=== PATIENT | male | born 1955 | race Caucasian/White ===

== ENCOUNTER 2016-11-27 14:18 | Outpatient (CLI) | payer BC ==
[2016-11-27] MEDS ORDERED: Gadobenate Dimeglumine 529 MG/1 ML (20ML VIAL) ONE (16:37)
--- NOTE | 2016-11-27 17:45 | RAD ---
FIVE VIEWS OF THE CERVICAL SPINE: 11/27/16 HISTORY: Three month check up on synovial cyst. Neck pain. Cervical spine cyst. COMPARISON: 08/21/16 FINDINGS: C1 to the cervicothoracic junction is seen on the lateral view. Multilevel degenerative changes are seen greatest at the C5-6 and C6-7 levels where there is narrowing of the intervertebral disc spaces and osteophyte formation. There is slight anterolisthesis of C4 on C5 seen on neural and flexion po sitioning which corrects with extension. No fracture is seen and no additional level of subluxation is identified. The prevertebral soft tissues are within normal limits. Radiopaque density overlying the subcutaneous soft tissues on the prior exam is not seen on this vera dy and may have been related to overlying artifact on the prior exam. IMPRESSION: 1. Anterolisthesis of C4 on C5, and the anterolisthesis corrects on extension. 2. Multilevel degenerative changes, greatest at the C5-6 and C6-7 levels. POS: [facility]
--- NOTE | 2016-11-27 20:58 | MRI ---
MRI CERVICAL SPINE WITH AND WITHOUT CONTRAST: Technique: Multiplanar, multisequential imaging of the cervical spine. Post contrast images obtained after administration of 14 cc MultiHance IV. History: Follow up cervical spine cyst. Neck mass. Comparison: MRI cervical spine 08-21-16. FINDINGS: Degenerative changes of the cervical spine again noted. There is loss of disc height at C5-6 and C6- 7. Posterior disc bulge and spondylosis at C5-6 and C6-7 again noted. Impingement on the anterior co rd at C5-6. Effacement of the anterior subarachnoid space at C4-5 and C6-7 again noted. These findin gs are stable. There is a linear vascular type signal abnormality seen in the posterior paraspinal tissues on the r ight at C4 and C5. This signal abnormality exhibits high T2 and low T1 signal with no significant en hancement. It extends into the right foramina at C4-5 and into the epidural space posteriorly on the right at this level abutting the posterior cord on the right. This produces slight flattening of th e posterior cord. The component seen in the posterior spinal canal in the epidural space is slightly larger today measuring at 5.4 mm where it previously measured at 4.3 mm. This does impinge on a mil dly flattened posterior cord on the right. The impingement of the cord does not appear significantly changed. 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 IMPRESSION: 1. 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 There may be slight increase in size in the posterior epidural component when compared to the 08-21-16 exam . AP dimension today measured at 5.4 mm where its previous AP dimension recorded at 4.3 mm. 2. Spondolytic changes in the spine again noted as described above. These changes are stable. POS: [facility]
== END 2016-11-27 14:19 | disposition home or self-care (01) ==
LOC: TBSIIMAG 14:18
PROVIDERS: ATTEND Surgery
DX: R22.1 Localized swelling, mass and lump, neck (principal); M85.68 Other cyst of bone, other site; M47.892 Other spondylosis, cervical region; M43.12 Spondylolisthesis, cervical region
CPT/HCPCS: 72050; 72156; A9579

== ENCOUNTER 2017-06-04 14:12 | Outpatient (CLI) | payer BC ==
[2017-06-04] MEDS ORDERED: Gadobenate Dimeglumine 529 MG/1 ML (20ML VIAL) ONE (15:43)
--- NOTE | 2017-06-04 16:02 | RAD ---
CERVICAL SPINE: Date; 06/04/17 HISTORY: R22.1, cervical spine cyst. M54.2, neck pain. COMPARISON: Cervical spine radiographs same day. FINDINGS: Moderately advanced degenerative disc space height loss at C5-6 and C6-7. There is anterolisthesis in the neutral position of C4 over C5 of approximately 3.0 mm, with mild increase with flexion from 2.0 mm to 3.0 mm, with extension going back to 2.0 mm. Chronic superior end plate height loss at C7. IMPRESSION: Moderate degenerative changes, as well as C4 over C5 anterolisthesis with mild translation with flexi on. POS: [facility]
--- NOTE | 2017-06-04 17:02 | MRI ---
PRE AND POST CONTRAST ENHANCED MRI CERVICAL SPINE: 06/04/2017 COMPARISON: 11/27/2016 and 05/31/2016 FINDINGS: Multiplanar, multisequence pre and post contrast enhanced MRI of the cervical spine demonstrate, agai n, a right C4 and C5 area of T2 signal abnormality with a peripheral rim of enhancement, compatible w ith a venolymphatic malformation, unchanged since previous numerous MRIs. There is an area of the lesion that extends into the right C4 epidural space, compressing the thecal sac, along the right posterior aspect. No evidence of signal abnormality is seen within the spinal c ord. C1-C2: Unremarkable. C2-C3: Unremarkable. C3-C4: There is some moderate left C3-C4 neural foraminal narrowing due to uncovertebral and facet h ypertrophic changes. The right neural foramen is patent. The central canal is patent. C4-C5: Disk desiccation is seen. There is a broad-based disk osteophyte complex centrally, compress ing the thecal sac, resulting in a moderate degree of central and moderate neural foraminal narrowing . C5-C6: Disk desiccation and degeneration is seen. There is a broad-based disk osteophyte complex ce ntrally, resulting in mild to moderate central stenosis. Moderate bilateral neural foraminal narrowi ng is seen, due to uncovertebral osteophyte hypertrophy. C6-C7: Again, disk degenerative change is seen. The central canal is patent. Mild neural foraminal narrowing is seen. C7-T1: Unremarkable. IMPRESSION: Right intrathecal and paraspinal C4-C5 area of well circumscribed lobular density, most compatible wi th lymphovenous malformation, unchanged on numerous previous comparison MRIs. One component of this does extend into the right C4 epidural space. Some modic type I change is seen in the inferior endpl ate of C5 and the superior endplate of C6. POS: [facility]
== END 2017-06-04 14:13 | disposition home or self-care (01) ==
LOC: TBSIIMAG 14:12
PROVIDERS: ATTEND Surgery
DX: M54.2 Cervicalgia (principal); R22.1 Localized swelling, mass and lump, neck; M47.892 Other spondylosis, cervical region; M43.12 Spondylolisthesis, cervical region
CPT/HCPCS: 72050; 72156; A9579

== ENCOUNTER 2017-06-13 14:03 | Outpatient (CLI) | payer BC ==
[~2017-06-13 14:03] MED LIST: Iopamidol 370 76% 100 ML VIAL ONE
--- NOTE | 2017-06-13 16:07 | CT ---
CT ANGIOGRAM OF THE NECK: HISTORY: Posterior right neck lymphogenous endolymphatic malformation. Presurgical examination to evaluate th e vertebral arteries. COMPARISON: None. CORRELATION: MRI 06/04/17. TECHNIQUE: CT angiogram of the neck is performed in the axial plane. Three-dimensional reformatted images are s ubmitted for interpretation. FINDINGS: Visualized brain parenchyma is unremarkable. Bilateral ocular lenses are appropriately located. Bot h globes are intact. Retrobulbar fat is preserved. Symmetric attenuation of the optic nerve and ocu lar rectus muscles. Adequate aeration of the sinuses and mastoid air cells. Aerodigestive tract is patent. No mucosal abnormality. The midline fatty raphe of the tongue is pre served. Epiglottis has a normal caliber. Preepiglottic fat is preserved. No prevertebral soft tiss ue swelling. Cervical spine vertebral height is maintained. No fracture. Varying degrees of central canal stenos is and foraminal narrowing on the basis of degenerative change. Evaluation is limited by technique. Upper mediastinum and lung apices are unremarkable. Symmetric attenuation of the sternocleidomastoid muscles, parotid and submandibular glands. Unremark able thyroid gland. No evidence of lymphadenopathy by size criteria. CT ANGIOGRAM: The aortic arch is patent. Both carotid arteries are patent throughout their course of the neck. No significant stenosis. Bilateral subclavian arteries are patent. Bilateral cervicovertebral bodies are patent throughout their course in the neck. The left vertebral artery is slightly larger than the contralateral size. Both vertebral artery origins are also gross ly unremarkable. A small amount of calcified plaque at the origin of the right vertebral artery is n oted. The previously identified venolymphatic malformation at the C3 and C4 levels does demonstrate asymmet dony soft tissue prominence. There is no evidence of significant enhancement. IMPRESSION: 1. Patent bilateral vertebral arteries. 2. Asymmetric soft tissue prominence corresponding to the venolymphatic malformation identified on p revious MRI. No evidence of avid enhancement. POS: [facility]
== END 2017-06-13 14:04 | disposition home or self-care (01) ==
LOC: TBSIIMAG 14:03
PROVIDERS: ATTEND Surgery
DX: M54.12 Radiculopathy, cervical region (principal); D48.0 Neoplasm of uncertain behavior of bone and articular cartilage
CPT/HCPCS: 70498

== ENCOUNTER 2017-07-10 08:34 | Outpatient (CLI) | payer BC ==
[2017-07-10 09:26] LABS: Hemoglobin 14.1 g/dL (14.0-18.0); Mean Corpuscular HGB CONC 36.3 g/dL (32.0-36.0); Mean Corpuscular Hemoglobin 35.1 pg (27.0-31.0); Mean Corpuscular Volume 96.8 fl (80.0-94.0); Platelet Count 299 thou/uL (130-400); RBC Distribution Width 11.9 % (11.5-14.5); Red Blood Cell (RBC) Count 4.02 mill/uL (4.70-6.10); White Blood Cell (WBC) Count 5.8 thou/uL (4.8-10.8)
[2017-07-10 09:34] LABS: PTT 28.6 SEC (22.9-36.1); Prothrombin Time 12.9 SEC (12.0-14.7)
[2017-07-10 09:45] LABS: Anion Gap 14 mmol/L (10-20); BUN (Urea Nitrogen) 17 mg/dL (8.4-25.7); Calc. Creatinine Clearance 0 mL/min (70-130); Calcium 9.9 mg/dL (7.8-10.44); Carbon Dioxide 27 mmol/L (22-29); Chloride 103 mmol/L (98-107); Estimated GFR-MDRD 73; Glucose 91 mg/dL (70-105); Potassium 4.1 mmol/L (3.5-5.1); Sodium 140 mmol/L (136-145)
--- NOTE | 2017-07-10 23:53 | EKG ---
Test Reason : Blood Pressure : / mmHG Vent. Rate : 085 BPM Atrial Rate : 085 BPM P-R Int : 182 ms QRS Dur : 082 ms QT Int : 368 ms P-R-T Axes : 052 -10 022 degrees QTc Int : 437 ms Normal sinus rhythm Normal ECG No previous ECGs available Confirmed by Rashawn QIU ([id number]) on 07/10/2017 11:53:21 PM Referred By: JONATHAN Confirmed By:Rashawn QIU
== END 2017-07-10 08:35 | disposition home or self-care (01) ==
LOC: LABBT 08:34
PROVIDERS: ATTEND Surgery
DX: Z01.818 Encounter for other preprocedural examination (principal); M48.02 Spinal stenosis, cervical region; G95.9 Disease of spinal cord, unspecified
CPT/HCPCS: 80048; 85027; 85610; 85730; 93005; 93010

== ENCOUNTER 2017-07-17 05:54 | Day surgery (SDC) | payer BC ==
[2017-07-17] MEDS ORDERED: Sodium Chloride 0.9% 10 ML ONE ×2 (06:32→06:33)
[2017-07-17] MEDS ORDERED: Bacitracin Zinc Ointment 30 gm TUBE ONE (06:33)
[2017-07-17] MEDS ORDERED: Thrombin 5000 UNITS/5 ML VIAL ONE ×3 (06:33→15:45)
[2017-07-17] MEDS ORDERED: Midazolam HCl 2 mg/2 ml Vial ONE (06:59)
[2017-07-17] MEDS ORDERED: CEFAZOLIN/Water 2 GM/20 ML SYRINGE ONE (06:59)
[2017-07-17] MEDS ORDERED: Albumin 5% 500 ML ONE (07:12)
[2017-07-17] MEDS ORDERED: Promethazine HCl 25 MG/ML VIAL ONE (07:12)
[2017-07-17] MEDS ORDERED: Phenylephrine HCL 10 MG/ML VIAL ONE (07:12)
[2017-07-17] MEDS ORDERED: Fentanyl 100 MCG/2 ML VIAL ONE ×4 (07:29→15:10)
[2017-07-17] MEDS ORDERED: Promethazine HCl 25 MG/ML VIAL IM PRN ×2 (11:02→13:45)
[2017-07-17] MEDS ORDERED: Ondansetron HCl/PF 4 MG/2 ML Vial IVP PRN (11:02)
[2017-07-17] MEDS ORDERED: Morphine Sulfate 2 MG/ML SYRINGE SLOW IVP PRN (11:02)
[2017-07-17] MEDS ORDERED: Promethazine HCl 25 MG/ML VIAL SLOW IVP PRN (11:02)
[2017-07-17] MEDS ORDERED: Meperidine HCl/PF 25 MG/ML VIAL SLOW IVP PRN (11:02)
[2017-07-17] MEDS ORDERED: HYDROmorphone 2 MG/ML VIAL SLOW IVP PRN (11:02)
[2017-07-17] MEDS ORDERED: PHENYLEPHRINE-NS 100 MCG/ML 10 ML SYRINGE ONE ×2 (11:56→15:45)
[2017-07-17] MEDS ORDERED: Vecuronium 10 MG VIAL ONE ×2 (12:07→15:45)
[2017-07-17] MEDS ORDERED: HYDROmorphone 0.5 MG/0.5 ML SYRINGE ONE (13:12)
[2017-07-17] MEDS ORDERED: Fleet Enema 133 ML BOT PR PRN (13:45)
[2017-07-17] MEDS ORDERED: Mag-Al 1200 mg/1200 mg/30 ML UDCUP PO PRN (13:45)
[2017-07-17] MEDS ORDERED: Acetaminophen 325 MG TAB PO PRN (13:45)
[2017-07-17] MEDS ORDERED: Bisacodyl 10 MG SUPP PR PRN (13:45)
[2017-07-17] MEDS ORDERED: traMADol HCl 50 MG TAB PO PRN (13:45)
[2017-07-17] MEDS ORDERED: Milk Of Magnesia 30 ML UDCUP PO PRN (13:45)
[2017-07-17] MEDS ORDERED: PROVENTIL INHALER 6.7 G (200 INHALATIONS) INH PRN (13:48)
--- NOTE | 2017-07-17 14:10 | OP ---
DATE OF PROCEDURE: 07/17/2017 OR: OR #12. WOUND TYPE: Type 1 wound. SURGEON: Ugo Miller M.D. PRINT PRODUCTION MANAGER: Jp Gaitan PA-C. 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 PROCEDURE: 1. Anterior C4-C5, C5-C6 diskectomy for decompression of the spinal cord and preparation of endplate s for arthrodesis C4-C5, C5-C6 anteriorly. 2. Placement of interbody spacer, C4-C5, C5-C6 packed with local bone autograft and allograft obtain ed from same incision, C4-C5, C5-C6. 3. Anterior cervical plate and screw fixation, C4, C5, C6. 4. Use of operative microscope for microdissection. 5. Extradural mass resection with extension into the soft tissues with a resection of that component as well and into the C5 neural foramen. 6. Lateral mass screw cindy fixation, left-sided C4, C5, C6. 7. Posterior lateral fusion, left side, C4, C5, C6 with allograft. PROCEDURE: After informed consent was obtained from the patient, the patient was brought to OR 12. Proper patient pause and identification was carried out. He was placed under excellent general endot anjelica anesthesia and positioned supine on the OR table. Right anterior oblique wade was drawn out on his right neck that allow for approach to C4, C5, C6 segments. This region was sterilely cleansed , prepared, and draped. Proper patient pause and identification was carried out. The wound was then opened with a combination of sharp, monopolar and blunt dissection proceeded lateral to the larynx a nd pharynx and medial to the right carotid sheath. We identified the prevertebral layer of deep cerv ical fascia and C4, C5, C6 segments. Localization film confirmed our area of interest. We then perf ormed distraction at C4-C5 and microscope was brought in the field. Diskectomy was performed with de compression of spinal cord and C5 nerve roots. We then turned our attention to placement of interbod y spacer following preparation of the endplate. This interbody spacer was of appropriate dimension a nd this was placed. We then turned our attention to distraction at C5-C6 and this occurred as well. Diskectomy at C5-C6 was performed and the endplates prepared and an appropriate dimension interbody spacer packed with local bone autograft obtained from same incision. Allograft was placed at C5-C6 f ollowing preparation of the endplates for arthrodesis. Copious irrigation occurred throughout as did maximizing hemostasis. The microscope was then removed and anterior cervical plate and screw fixati on, C4, C5, C6, then occurred. The plate and screw fixation at C4, C5, C6 occurred with final tighte kassi. Copious irrigation occurred. Hemostasis was maximized. The wound was then closed in anatomic layers over a drain. The patient was then placed in the prone position. Following the securing of the Rodriguez troy to his skull and a small amount of hair was clipped in the lower portion of the hairline posteriorly. W e then identified from C2 down to C6 an incision that we would drawn out to allow for subperiosteal e xposure across that region. Following proper patient pause and identification, this was performed al thierry with sterile cleansing, preparation and draping and the C2 to C6 segments were exposed. We ident ified cartilaginous appearing fleshy mass in the dorsal elements of C5. This was resected and sent f or pathology. Preliminary pathology consistent with cartilage. I then identified the lateral masses of C4, C5, C6 on the left side and lateral mass screw cindy fixation occurred with final tightening. We then turned our attention to the remaining portions of the tumor resection and a large hemilaminot alexa at C4-C5 was performed and the extradural mass identified. It was quite adherent to the dura and we peeled it off the dura carefully. We then followed it into the C5 foramen with excellent decompr ession of the C5 root and identification of the C5 root. I followed it throughout the foramen and re sected the facet complex and identified it into the soft tissues. It was quite nodular and firm and this was resected. I was very pleased with our resection and our decompression. Copious irrigation occurred throughout. Hemostasis was maximized. Decortication left side the lateral masses then occu rred at C4, C5, C6, and our allograft was laid out in this region for arthrodesis. Copious irrigatio n and hemostasis were maximized throughout. The wound was closed in anatomic layers following the sp rinkling of vancomycin powder. The patient then emerged from anesthesia.
[2017-07-17] MEDS ORDERED: Dexamethasone 20 MG/5 ML VIAL ONE (15:45)
[2017-07-17] MEDS ORDERED: Glycopyrrolate 0.2 MG/ML 5 ML SYRINGE ONE (15:45)
[2017-07-17] MEDS ORDERED: Ondansetron HCl/PF 4 MG/2 ML Vial ONE (15:45)
[2017-07-17] MEDS ORDERED: CEFAZOLIN 1 GM VIAL ONE (15:45)
[2017-07-17] MEDS ORDERED: Esmolol 100 MG/10 ML VIAL ONE (15:45)
[2017-07-17] MEDS ORDERED: Lidocaine 2% PF 100 mg/5 ml Syringe ONE (15:45)
[2017-07-17] MEDS ORDERED: Metoclopramide HCl 10 MG/2 ML VIAL ONE (15:45)
[2017-07-17] MEDS ORDERED: PROPOFOL 200 MG/20 ML VIAL ONE (15:45)
[2017-07-17] MEDS ORDERED: Lidocaine 1% PF 5 ML VIAL ONE (15:45)
[2017-07-17] MEDS: Sodium Chloride 0.9% 1,000 ML IV SCH (16:05)
[2017-07-17] MEDS: Acetaminophen/Codeine 30-300mg Tablet PO PRN (16:14)
[2017-07-17 19:24] VITALS: BMI 26.6
[2017-07-17] MEDS: CEFAZOLIN/Water 2 GM/20 ML SYRINGE SLOW IVP SCH (21:09)
[2017-07-17] MEDS: tiZANidine HCl 4 MG TAB PO PRN (21:09)
[2017-07-18] MEDS: HYDROcodone/Acetaminophen 7.5/325 mg Tablet PO PRN ×2 (06:45→21:25)
[2017-07-18] MEDS: tiZANidine HCl 4 MG TAB PO PRN ×2 (06:45→21:26)
[2017-07-18] MEDS: CEFAZOLIN/Water 2 GM/20 ML SYRINGE SLOW IVP SCH ×3 (06:46→21:03)
[2017-07-18] MEDS: Cepastat Lozenges 1 LOZ PO PRN ×2 (07:47→21:02)
[2017-07-18] MEDS: Sodium Chloride 0.9% 1,000 ML IV SCH ×2 (08:30→21:04)
--- NOTE | 2017-07-18 09:31 | PRG ---
DATE OF SERVICE: 07/18/2017 Mr. Cleaning is postoperative day #1, having undergone C4-C6 ACDF and posterior cervical fusion C4, 5 and 6 with right-sided facetectomy at C4-5 and excision of posterior cervical mass. The patient is d oing well postoperatively, though does have expected postoperative pain including bilateral trapezius pain. He has good strength in the bilateral upper extremities. He is tolerating pills, but does johns ve some swallowing discomfort and has been using Cepacol lozenges. He has been wearing his collar as directed. We will keep him on a clear liquid diet. More than likely he will meet criteria for disc harge tomorrow, but will stay one more overnight for continued postoperative pain control. Please ca ll with any questions or changes in patient's neurologic status.
[2017-07-18] MEDS: Acetaminophen/Codeine 30-300mg Tablet PO PRN (18:19)
[2017-07-19] MEDS: CEFAZOLIN/Water 2 GM/20 ML SYRINGE SLOW IVP SCH ×2 (06:02→14:29)
[2017-07-19] MEDS: tiZANidine HCl 4 MG TAB PO PRN (06:15)
[2017-07-19] MEDS ORDERED: Dexamethasone 4 mg/ml Vial SLOW IVP SCH (08:00)
[2017-07-19] MEDS ORDERED: Famotidine/PF 20 mg/2ml Vial SLOW IVP SCH (09:00)
--- NOTE | 2017-07-19 10:32 | PRG ---
DATE OF SERVICE: 07/19/2017 Mr. Cleaning continues to do well postoperative from an anterior posterior stabilization and resection of a large extradural lesion. The pathology appears to be consistent with a cartilaginous lesion th at is being sent to [facility] for further assessment with possibilities of enchondroma or low grade chondrosarcoma. I discussed all this with Mr. Cleaning. Neurologically he remains intact. His drai n output is minimal. He did state when he was attempting to sleep he had some air hunger. He is on room air and has no stridor and we will continue to watch him closely this morning. He may be able t o get out of the hospital later today or perhaps tomorrow.
[2017-07-19] MEDS: Dexamethasone 4 mg/ml Vial SLOW IVP SCH ×2 (12:41→18:21)
[2017-07-19] MEDS: Sodium Chloride 0.9% 1,000 ML IV SCH (14:38)
[2017-07-19 15:14] VITALS: BP 121/76; TEMP 98.4
[2017-07-20] MEDS ORDERED: Dexamethasone 4 mg/ml Vial SLOW IVP SCH (12:00)
[2017-07-21] MEDS ORDERED: Dexamethasone 4 mg/ml Vial SLOW IVP SCH (12:00)
[2017-07-22] MEDS ORDERED: Dexamethasone 4 mg/ml Vial SLOW IVP SCH (12:00)
== END 2017-07-19 18:38 | disposition home or self-care (01) ==
LOC: SDC 05:54 → EDSTATUS 08:30 → SURG A 13:44 → SDC 07-19 18:38
PROVIDERS: ATTEND Surgery
PROC: 0RG2070 Fusion of 2 or more Cervical Vertebral Joints with Autologous Tissue Substitute, Anterior Approach, Anterior Column, Open Approach (ICD-10-PCS; principal; 2017-07-17)
PROC: 0RG20A0 Fusion of 2 or more Cervical Vertebral Joints with Interbody Fusion Device, Anterior Approach, Anterior Column, Open Approach (ICD-10-PCS; principal; 2017-07-17)
PROC: 0RB30ZZ Excision of Cervical Vertebral Disc, Open Approach (ICD-10-PCS; principal; 2017-07-17)
PROC: 0PB30ZX Excision of Cervical Vertebra, Open Approach, Diagnostic (ICD-10-PCS; principal; 2017-07-17)
DX: M43.12 Spondylolisthesis, cervical region (principal); M50.822 Other cervical disc disorders at C5-C6 level; M48.8X2 Other specified spondylopathies, cervical region; Z88.2 Allergy status to sulfonamides
CPT/HCPCS: 76001; 88304; 88307; 88331; 88360; 96374; A4216; C1713; C1776; J0131; J0690; J1100; J1170; J2001; J2250; J2370; J2405; J2550; J2704; J2765; J3010; J3370; J3490; P9045

== ENCOUNTER 2017-09-03 09:25 | Outpatient (CLI) | payer BC ==
--- NOTE | 2017-09-03 11:39 | RAD ---
CERVICAL SPINE THREE VIEWS: History: Post op follow up. FINDINGS: Anterior plate and screws are seen transfixing C4, C5, and C6 with interbody implants. Posterior pedi haider screws are present on the left at these levels. Vertebral bodies maintain height and alignment. M ild loss of disc space at C6-7. Degenerative changes are also present at C6-7 with mild wedging of C6 and degenerative osteophytes. IMPRESSION: Degenerative and post-operative changes of the cervical spine noted as described. POS: [facility]
== END 2017-09-03 09:26 | disposition home or self-care (01) ==
LOC: RAD 09:25 → TBSIIMAG 09:26
PROVIDERS: ATTEND Surgery
DX: M50.30 Other cervical disc degeneration, unspecified cervical region (principal); M47.892 Other spondylosis, cervical region; Z98.890 Other specified postprocedural states
CPT/HCPCS: 72040

== ENCOUNTER 2019-03-19 12:51 | Outpatient (CLI) | payer BC ==
--- NOTE | 2019-03-19 14:17 | RAD ---
CERVICAL SPINE 3 VIEWS: Date: 03/19/2019 HISTORY: Cervical spinal stenosis, neck pain. COMPARISON: 09/03/2017. FINDINGS: Anterior and posterior fusion changes noted at C4, C5, and C6, with intradiscal prosthesis. No signif icant malalignment. The odontoid and C1 are mostly obscured on the AP open-mouth view. Disc osteophyt osis at C6-C7. IMPRESSION: Stable postoperative changes of the cervical spine from prior study. POS: [facility]
== END 2019-03-19 12:52 | disposition home or self-care (01) ==
LOC: TBSIIMAG 12:51
PROVIDERS: ATTEND Surgery
DX: M48.02 Spinal stenosis, cervical region (principal); Z98.1 Arthrodesis status
CPT/HCPCS: 72040